=== PATIENT | female | born 1995 | race Caucasian/White ===

== ENCOUNTER → 2016-06-10 08:34 | Outpatient (CLI) | payer MEDICAID ==
[2010-07-22 11:28] VITALS: BMI 29.5
[~2016-06-10 08:34] MED LIST: FERROUS SULFAT325 MG PO; HYDROCODONE-APA1 TAB PO; PROTONIX20 MG PO
[2016-07-25 05:58] VITALS: BMI 40.3
== END | disposition home or self-care (01) ==
LOC: D.CT 08:30
DX: R10.9 Unspecified abdominal pain (principal)

== ENCOUNTER 2016-07-25 05:10 | Day surgery (SDC) | payer MEDICAID ==
[2016-07-24 12:16] LABS: HEMATOCRIT 31.8 % (36.0-48.0); HEMOGLOBIN 9.2 g/dL (12-16); MCH 19.6 pg (26.0-34.0); MCHC 28.9 g/dL (31.0-37.0); MCV 67.7 fL (80.0-100.0); PLATELET COUNT 354 10x3/uL (130-400); RDW 16.8 % (11.5-14.5); WBC 8.3 10x3/uL (4.8-10.8)
[~2016-07-25] VITALS: Ht 165.1 cm; Wt 109.8 kg
[~2016-07-25 05:10] MED LIST changes: -HYDROCODONE-APA1 TAB PO
[2016-07-25 05:58] VITALS: BP 115/62; Ht 165.1 cm; Wt 109.8 kg
[2016-07-25 06:05] LABS: HCG URINE NEGATIVE (NEGATIVE)
[2016-07-25] MEDS ORDERED: HYDROCODONE-APA1 TAB PO (07:44)
--- NOTE | 2016-07-25 09:05 | NUR ---
IV DC WITH CATHER TIP INTACT
--- NOTE | 2016-07-25 12:58 | OP ---
PATIENT NAME: JOHN DOBBINS MEDICAL RECORD: [id number] :95 LOCATION:[facility] ADMISSION DATE: SURGEON: BIJU AGEE MD DATE OF OPERATION: 07/25/2016 PREOPERATIVE DIAGNOSIS: Left volar ganglion cyst at the wrist. POSTOPERATIVE DIAGNOSIS: Left volar ganglion cyst at the wrist. PROCEDURES PERFORMED: Left volar ganglion cyst excision. SURGEON: Darius Agee MD ANESTHESIA: General. CONDITION: She tolerated the procedure well, was transferred to the recovery room in stable condition. INDICATIONS: This is a 20-year-old female with a cyst on the volar side of her wrist, has been bothering her. She wanted it removed. We discussed risks, benefits, and alternatives. She understood and wished to proceed. OPERATIVE REPORT: The patient was taken to the operating room and placed in supine position. General anesthesia was obtained. The left wrist confirmed to be the correct wrist. It was prepped and draped in the normal fashion. I then made small Z-plasty type incision over the volar wrist. This was taken down and the soft tissue was spread. The cyst was identified. It was circumferentially identified. This juncture did pop. I did have a clamp and I was able follow the tail, take this down and snipped it. I sent this for pathology. She was then irrigated. She was closed with 2-0 Vicryl, then 3-0 Prolene, awakened and transferred to recovery room in stable condition, having tolerated the procedure well. TRANSINT:[id number] Voice Confirmation ID: [id number] DOCUMENT ID: [id number] BIJU AGEE MD at 1258 CC: [id number] DICTATION DATE: 07/25/16 0750 CONSTRUCTION DIRECTOR: 07/25/16 0947 [facility] 07/25/16 [facility] [address] [id number]
== END 2016-07-25 09:25 | disposition home or self-care (01) ==
LOC: D.OPS 05:10 → D.PAN 07:00 → D.OPS 08:00 → D.PAN 08:00 → D.OPS 09:25
PROVIDERS: Anesthesiology; Orthopaedic Surgery Sports Medicine
DX: M67.432 Ganglion, left wrist (principal)

== ENCOUNTER 2017-09-17 15:58 | Outpatient (CLI) | payer MEDICAID ==
[2016-07-25 05:58] VITALS: BMI 40.3
[~2017-09-17 15:58] MED LIST changes: +HYDROCODONE-APA1 TAB PO
== END 2017-09-17 23:59 | disposition home or self-care (01) ==
LOC: D.CT 15:58
DX: R19.03 Right lower quadrant abdominal swelling, mass and lump (principal)